=== PATIENT | female | born 1975 | race Caucasian/White ===

== ENCOUNTER 2021-10-31 08:03 | Emergency (ER) | payer OTHER ==
[~2021-10-31] VITALS: Ht 170.2 cm; Wt 56.8 kg
[2021-10-31] MEDS ORDERED: potassium Cl 20 mEq SR tablet PO STA (08:39)
[2021-10-31] MEDS ORDERED: normal saline 1000ML IV soln IVB ONE (08:40)
[2021-10-31] MEDS ORDERED: haloperidol lactate 5mg/ml inj IM ONE (08:40)
[2021-10-31] MEDS ORDERED: LORazepam 2 mg/ml vial IV ONE (08:40)
[2021-10-31] MEDS ORDERED: PROC25SU31 RC (08:50)
[2021-10-31] MEDS ORDERED: ONDA4TAB12 PO (08:50)
[2021-10-31 10:21] VITALS: BP 118/78
== END 2021-10-31 11:39 | disposition home or self-care (01) ==
LOC: ER 08:04
DX: F12.188 Cannabis abuse with other cannabis-induced disorder (principal); R11.2 Nausea with vomiting, unspecified; R00.0 Tachycardia, unspecified; Z79.899 Other long term (current) drug therapy
CPT/HCPCS: 96372; 96374; 99284; J1630; J2060; J7030